=== PATIENT | female | born 1980 | race Caucasian/White ===

== ENCOUNTER 2023-09-29 09:59 | Emergency (ER) | payer OTHER ==
[2023-09-29 10:37] VITALS: BP 106/75; PULSE 81; RESP 16; TEMP 97.7; BMI 31.1
[2023-09-29] MEDS ORDERED: LIDOCAINE 5% TOPICAL PATCH TP ONE (12:06)
[2023-09-29] MEDS ORDERED: METHOCARBAMOL 500 MG TABLET ONE (12:12)
[2023-09-29] MEDS: METHOCARBAMOL 500 MG TABLET PO ONE (12:17)
[2023-09-29] MEDS ORDERED: ACETAMINOPHEN 325 MG TABLET (FP) ONE (12:17)
[2023-09-29] MEDS: ACETAMINOPHEN 500 MG TABLET (FP) PO ONE (12:20)
[2023-09-29] MEDS ORDERED: LIDOCAINE PATCH REMOVAL MC ONE (22:00)
== END 2023-09-29 13:03 | disposition home or self-care (01) ==
LOC: JER 09:59
DX: M54.2 Cervicalgia (principal); M54.50 Low back pain, unspecified; R20.0 Anesthesia of skin; R20.2 Paresthesia of skin
CPT/HCPCS: 93005; 93010; 99283-25